=== PATIENT | male | born 1970 | race Caucasian/White ===

== ENCOUNTER 2016-12-04 10:44 | Emergency (ER) | payer OTHER ==
[~2016-12-04] VITALS: Ht 182.9 cm; Wt 100.0 kg
[~2016-12-04 10:44] MED LIST: CIPR500T4 PO; MOTR200T PO; PERC5TAB12 PO; ZOFR8TAB PO
[2016-12-04 10:45] VITALS: BP 132/80; PULSE 102; RESP 14; TEMP 97.9; O2SAT 97
[2016-12-04] MEDS ORDERED: CEPHALEXIN MONOHYDRATE 500 MG CAP PO ONE (13:30)
[2016-12-04] MEDS ORDERED: TETANUS/DIPHTHERIA TOXOID ADULT 0.5 ML VIAL IM ONE (13:30)
[2016-12-04] MEDS ORDERED: LIDOCAINE 2%/EPINEPHrine 1:100,000 30ML MDV INFIL ONE (13:30)
--- NOTE | 2016-12-04 13:31 | PD ---
HPI Chief Complaint: Skin Problem Time Seen by Provider: 13:31 Travel History International Travel<30 days: No Contact w/Intl Traveler<30days: No Traveled to known affect area: No History of Present Illness HPI Patient is a 46-year-old male who presented to emergency for evaluation of a laceration to his right lower leg. He sustained a laceration while he was at work, stating a tenant was breaking glass, when he attempted to clean up a glass he cut his leg. He is unsure of his last tetanus vaccination. He denies any numbness or tingling or weakness in his lower extremity. He has no other complaints at this time. [facility] Past Medical History Medical History: Denies Significant Hx Heart Rhythm Problems: No Cardiac Catheterization: No Cardiovascular Problems: No High Cholesterol: No Congestive Heart Failure: No Diabetes: No Diminished Hearing: No Hypertension: No Kidney Stones: Yes Musculoskeletal: Yes (TORN BACK MUSCLES ) Myocardial Infarction: No Past Surgical History Coronary Artery Bypass Graft: No Social History Alcohol Use: Yes (ON WEEKEND) Tobacco Use: Yes (1 PPD) Substance Use: No Allergies-Medications (Allergen,Severity, Reaction): Coded Allergies: No Known Allergies (Verified , 12/04/16) Reported Meds & Prescriptions Reported Meds & Active Scripts Active No Active Prescriptions or Reported Medications Review of Systems Except as stated in HPI: all other systems reviewed are Neg Skin: Positive Other Physical Exam Narrative GENERAL: Well-nourished, well-developed patient. SKIN: Warm and dry. 3 cm laceration to the right lateral lower leg. Base of the wound is well visualized. HEAD: Normocephalic. EYES: No scleral icterus. No injection or drainage. NECK: Supple, trachea midline. No JVD or lymphadenopathy. CARDIOVASCULAR: Regular rate and rhythm without murmurs, gallops, or rubs. RESPIRATORY: Breath sounds equal bilaterally. No accessory muscle use. GASTROINTESTINAL: Abdomen soft, non-tender, nondistended. MUSCULOSKELETAL: No cyanosis, or edema. BACK: Nontender without obvious deformity. No CVA tenderness. Data Data Last Documented VS Vital Signs Date Time Temp Pulse Resp B/P Pulse Ox O2 Delivery O2 Flow Rate FiO2 12/04/16 10:45 97.9 102 14 132/80 97 Room Air Orders Lidocai-Epi 2%-1:100,000 Inj (Xylocaine- (12/04/16 13:30) Tetanus/Diphtheria Tox Adult (Tetanus/Di (12/04/16 13:30) Cephalexin (Keflex) (12/04/16 13:30) Lidocai-Epi 1%-1:100,000 Inj (Xylocaine- (12/04/16 13:45) MDM Medical Decision Making Medical Screen Exam Complete: Yes Emergency Medical Condition: Yes Interpretation(s) Vital Signs Date Time Temp Pulse Resp B/P Pulse Ox O2 Delivery O2 Flow Rate FiO2 12/04/16 10:45 97.9 102 14 132/80 97 Room Air Differential Diagnosis Laceration versus contusion versus abrasion versus tendon injury versus foreign body versus other Narrative Course Patient is a 46-year-old male who presents emergency department for evaluation of a laceration to his right lower leg that he sustained while at work today. Patient is neurovascularly intact, please see procedure report for laceration repair. Patient's tetanus vaccination was updated in the emergency department, he was given first dose of Keflex. Patient was educated on signs and symptoms of infection, he was educated that he will need to return in 10-14 days to have stitches removed. He was encouraged to rest, elevate his extremity to avoid swelling. He was advised to return to emergency room immediately should he experience any worsening signs or symptoms. He verbalized understanding of these instructions. Patient is stable for discharge. Diagnosis Primary Impression: Laceration of leg Qualified Code: S81.811A - Laceration of leg, right, initial encounter Referrals: Primary Care Physician 2 weeks Patient Instructions: General Instructions Additional Instructions: Take medications as directed Elevate extremity Return to emergency department for any new or worsening symptoms Follow-up with her primary doctor Keep stitches clean and dry Do not swim in the ocean, pools, ETC until completely healed and stitches are removed Med/Other Pt SpecificInfo: Prescription(s) given Scripts Ibuprofen 800 Mg [id number] Mg PO Q6HR PRN (PAIN) #40 TAB Ref 0 Prov:Laura Puentes 12/04/16 Cephalexin (Keflex)500 Mg [id number] Mg PO Q12H 10 Days Ref 0 Prov:Laura Puentes 12/04/16 Disposition: 01 DISCHARGE HOME Condition: Stable Laura Puentes Dec 04, 2016 13:31
[2016-12-04] MEDS ORDERED: LIDOCAINE 1%/EPINEPHrine 1:100,000 SOLN 20 ML VIAL INFIL ONE (13:45)
[2016-12-04] MEDS ORDERED: IBUP800T23 PO (15:05)
[2016-12-04] MEDS ORDERED: CEPH-460 PO (15:05)
[2017-02-14] MEDS ORDERED: ROSU1TAB6 PO (16:14)
[2017-02-14] MEDS ORDERED: DICL50TA3 PO (16:54)
== END 2016-12-04 15:19 | disposition home or self-care (01) ==
LOC: NEPB 10:44
DX: S81.811A Laceration without foreign body, right lower leg, initial encounter (principal); W25.XXXA Contact with sharp glass, initial encounter; Y99.0 Civilian activity done for income or pay; Z23 Encounter for immunization
CPT/HCPCS: 12002; 90471; 90714